=== PATIENT | female | born 1980 | race African-American/Black ===

== ENCOUNTER 2023-08-20 23:05 | Emergency (ER) | payer MEDICAID ==
[~2023-08-20] VITALS: Ht 167.6 cm; Wt 65.0 kg
[2023-08-20 23:10] VITALS: BP 98/62; PULSE 85; RESP 20; TEMP 98.7; O2SAT 100
== END 2023-08-21 04:32 | disposition left against medical advice (07) ==
LOC: ER 23:05
DX: M79.673 Pain in unspecified foot (principal); Z53.21 Procedure and treatment not carried out due to patient leaving prior to being seen by health care provider
CPT/HCPCS: 99281